=== PATIENT | female | born 2000 | race African-American/Black ===

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

== ENCOUNTER 2021-06-17 15:05 | Emergency (ER) | payer BC, OTHER ==
[~2021-06-17] VITALS: Ht 175.3 cm; Wt 73.9 kg
[~2021-06-17 15:05] MED LIST changes: +CEPH500T PO
--- NOTE | 2021-06-17 15:11 | ED General ---
General Chief Complaint: Exposure Stated Complaint: LETHARGIE History of Present Illness Date Seen by Provider: Jun 17, 2021 Time Seen by Provider: 15:11 Initial Comments 20-year-old female brought in due to lethargy. Patient was at [facility] practice that started around 1 PM. Patient reports that they were doing 300 m "circuits" patient became heated and went to the locker room. In the locker room they had her get into a ice bath is approximately 40 degrees. Patient was in ice bath for at least 8 to 10 minutes when she started becoming lethargic. EMS was called. Upon EMS arrival they started an IV, start warming her. Upon arrival patient reports that she is feeling much better and is warmed up significantly. Patient now reports she just has a headache and is a little bit dizzy. She denies any chest pain, shortness of breath. Allergies and Home Medications Allergies Coded Allergies: No Known Drug Allergies (Unverified , 07/30/20) Home Medications Cephalexin 500 Mg Tablet, 500 MG PO TID Prescribed by: ELBERT SCHROEDER on 12/15/20 1830 Clotrimazole 45 Gm Cream.appl, 45 GM VG qhs Prescribed by: DU HERNANDEZ on 07/30/20 1355 Fluconazole 150 Mg Tablet, 150 MG PO ONCE Prescribed by: DU HERNANDEZ on 07/30/20 1355 Patient Home Medication List Home Medication List Reviewed: Yes Review of Systems Review of Systems Constitutional: see HPI, dizziness Respiratory: no symptoms reported Cardiovascular: no symptoms reported Gastrointestinal: no symptoms reported Genitourinary: no symptoms reported Musculoskeletal: no symptoms reported Skin: no symptoms reported Psychiatric/Neurological: Headache Hematologic/Lymphatic: No Symptoms Reported Immunological/Allergic: no symptoms reported Past Xfaeugn-Qmzijj-Hudvzf Hx Immunizations Up To Date Tetanus Booster (TDap): Unknown Seasonal Allergies Seasonal Allergies: No Past Medical History Surgeries: No Respiratory: No Cardiac: No Neurological: No Genitourinary: No Gastrointestinal: No Musculoskeletal: No Endocrine: No HEENT: No Cancer: No Psychosocial: No Integumentary: No Blood Disorders: No Physical Exam Vital Signs Vital Signs - First Documented 06/17/21 15:05 Temp 36.9 Pulse 75 Resp 15 B/P (MAP) 123/68 (86) Pulse Ox 99 O2 Delivery Room Air Capillary Refill : Height, Weight, BMI Height: '" Weight: lbs. oz. kg; 23.00 BMI Method: General Appearance: Mild Distress Neck: Non Tender, Supple Respiratory: Lungs Clear, Normal Breath Sounds Cardiovascular: Regular Rate, Rhythm, No Edema Gastrointestinal: Non Tender, Soft Back: No CVA Tenderness, No Vertebral Tenderness Neurologic/Psychiatric: Alert, Oriented x3, No Motor/Sensory Deficits, Normal Mood/Affect, hydro mechanic II-XII Norm as Tested Skin: Cool Progress/Results/Core Measures Suspected Sepsis SIRS Temperature: Pulse: Respiratory Rate: Laboratory Tests 06/17/21 15:15: White Blood Count 9.4 Blood Pressure / Mean: Laboratory Tests 06/17/21 15:15: Platelet Count 246 06/17/21 16:05: Creatinine 1.15, Total Bilirubin 0.3 Results/Orders Lab Results Laboratory Tests Test 06/17/21 15:15 06/17/21 16:05 Range/Units White Blood Count 9.4 4.3-11.0 10^3/uL Red Blood Count 4.61 3.80-5.11 10^6/uL Hemoglobin 11.7 11.5-16.0 g/dL Hematocrit 36 35-52 % Mean Corpuscular Volume 79 L 80-99 fL Mean Corpuscular Hemoglobin 25 25-34 pg Mean Corpuscular Hemoglobin Concent 32 32-36 g/dL Red Cell Distribution Width 13.3 10.0-14.5 % Platelet Count 246 130-400 10^3/uL Mean Platelet Volume 11.3 9.0-12.2 fL Immature Granulocyte % (Auto) 0 % Neutrophils (%) (Auto) 77 H 42-75 % Lymphocytes (%) (Auto) 13 12-44 % Monocytes (%) (Auto) 8 0-12 % Eosinophils (%) (Auto) 1 0-10 % Basophils (%) (Auto) 0 0-10 % Neutrophils # (Auto) 7.3 1.8-7.8 X 10^3 Lymphocytes # (Auto) 1.2 1.0-4.0 X 10^3 Monocytes # (Auto) 0.7 0.0-1.0 X 10^3 Eosinophils # (Auto) 0.1 0.0-0.3 10^3/uL Basophils # (Auto) 0.0 0.0-0.1 10^3/uL Immature Granulocyte # (Auto) 0.0 0.0-0.1 10^3/uL Sodium Level 139 135-145 MMOL/L Potassium Level 4.1 3.6-5.0 MMOL/L Chloride Level 103 98-107 MMOL/L Carbon Dioxide Level 24 21-32 MMOL/L Anion Gap 12 5-14 MMOL/L Blood Urea Nitrogen 8 7-18 MG/DL Creatinine 1.15 0.60-1.30 MG/DL Estimat Glomerular Filtration Rate 74 BUN/Creatinine Ratio 7 Glucose Level 82 70-105 MG/DL Calcium Level 9.0 8.5-10.1 MG/DL Corrected Calcium 8.8 8.5-10.1 MG/DL Total Bilirubin 0.3 0.1-1.0 MG/DL Aspartate Amino Transf (AST/SGOT) 22 5-34 U/L Alanine Aminotransferase (ALT/SGPT) 13 0-55 U/L Alkaline Phosphatase 73 40-136 U/L Total Protein 7.3 6.4-8.2 GM/DL Albumin 4.3 3.2-4.5 GM/DL My Orders Orders - GISELA LAMAS L DO Cbc With Automated Diff (06/17/21 15:11) Comprehensive Metabolic Panel (06/17/21 15:11) Ua Culture If Indicated (06/17/21 15:11) Urine Bedside (06/17/21 15:11) Creatine Kinase (06/17/21 15:11) Ekg Tracing (06/17/21 15:18) Vital Signs/I&O 06/17/21 15:05 Temp 36.9 Pulse 75 Resp 15 B/P (MAP) 123/68 (86) Pulse Ox 99 O2 Delivery Room Air Capillary Refill : Progress Note : Progress Note Patient symptoms rapidly resolved with some initial body warming. She was stable throughout her stay. 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 I did recommend refraining from practice and extensive physical activity till 06/21/2021. Patient stable and discharged home ECG Initial ECG Impression Date: Jun 17, 2021 Initial ECG Impression Time: 15:11 Initial ECG Rate: 68 Initial ECG Rhythm: Normal Sinus Comment early repol Departure Impression Primary Impression: Hypothermia Qualified Codes: T68.XXXA - Hypothermia, initial encounter Additional Impression: Heat exhaustion Qualified Codes: T67.5XXA - Heat exhaustion, unspecified, initial encounter Disposition: 01 HOME, SELF-CARE Condition: Stable Departure-Patient Inst. Referrals: NO,LOCAL PHYSICIAN (PCP/Family) Primary Care Physician Patient Instructions: Hypothermia, Heat Illness ED, Heat Exhaustion and Heat Stroke (DC) Add. Discharge Instructions: Drink plenty of fluids Please refrain from practice until 06/21/2021 All discharge instructions reviewed with patient and/or family. Voiced understanding. GISELA LAMAS DO Jun 17, 2021 15:11
[2021-06-17 15:35] LABS: HEMATOCRIT 36 % (35-52); HEMOGLOBIN 11.7 g/dL (11.5-16.0); MEAN CORPUSCULAR HEMOGLOBIN 25 pg (25-34); MEAN CORPUSCULAR VOLUME 79 fL (80-99); WHITE BLOOD COUNT 9.4 10^3/uL (4.3-11.0)
[2021-06-17 15:36] LABS: BASOPHILS % (AUTO) 0 % (0-10); EOSINOPHILS # (AUTO) 0.1 10^3/uL (0.0-0.3); EOSINOPHILS % (AUTO) 1 % (0-10); LYMPHOCYTES # (AUTO) 1.2 X 10^3 (1.0-4.0); LYMPHOCYTES % (AUTO) 13 % (12-44); MEAN CORPUSCULAR HGB CONC 32 g/dL (32-36); MEAN PLATELET VOLUME 11.3 fL (9.0-12.2); MONOCYTES # (AUTO) 0.7 X 10^3 (0.0-1.0); MONOCYTES % (AUTO) 8 % (0-12); NEUTROPHILS # (AUTO) 7.3 X 10^3 (1.8-7.8); NEUTROPHILS % (AUTO) 77 % (42-75); PLATELET COUNT 246 10^3/uL (130-400)
[2021-06-17 16:43] LABS: POTASSIUM 4.1 MMOL/L (3.6-5.0)
[2021-06-17 16:44] LABS: ALBUMIN 4.3 GM/DL (3.2-4.5); BILIRUBIN,TOTAL 0.3 MG/DL (0.1-1.0); CREATININE SERUM 1.15 MG/DL (0.60-1.30); TOTAL PROTEIN 7.3 GM/DL (6.4-8.2)
[2021-06-17 17:10] VITALS: BP 112/94
== END 2021-06-17 17:10 | disposition home or self-care (01) ==
LOC: EDUNIT# 15:05 → ER FS 15:06
DX: T68.XXXA Hypothermia, initial encounter (principal); T67.5XXA Heat exhaustion, unspecified, initial encounter
CPT/HCPCS: 36415; 80053; 82550; 85025; 93005